=== PATIENT | male | born 1965 | race Caucasian/White ===

== ENCOUNTER 2017-08-13 22:52 | Observation (INO) | payer OTHER ==
[~2017-08-13] VITALS: Ht 182.9 cm; Wt 136.3 kg
[2017-08-13] MEDS ORDERED: SODIUM CHLORIDE 0.9% 1000ML 1,000 ML IV STA (23:14)
[2017-08-13] MEDS ORDERED: ONDANSETRON INJ 2 MG/ML 2 ML VIAL IV STA (23:14)
--- NOTE | 2017-08-13 23:21 | EMERGENCY ROOM VISIT NOTE ---
History Report prepared by Breanna: Wan Gotti Under the Supervision of: Dr. Manuel Castro D.O. First contact with patient: 23:11 Chief Complaint: ABDOMINAL PAIN Stated Complaint: STOMACH CRAMPING Nursing Triage Summary: sudden onset of abdominal pain for the last three hours. patient with a history of bowel obstructions and sugeries in past. History of Present Illness The patient is a 52 year old male who presents to the Emergency Room with complaints of constant cramping midline lower abdominal pain that began 3 hours ago. The patient was working at the [employer] when he began to feel diaphoretic. He then began to feel this abdominal pain. He has a past medical history of a bowel obstruction and a hernia repair. He states his current symptoms feel like his symptoms of his past bowel obstruction. He denies any vomiting, back pain, hematochezia, or melena. He was experiencing some diarrhea. He tried to take Pepto Bismol, but it did not help his symptoms. He has never had diverticulitis. He denies any current medications or medical problems. He denies any chest pain or shortness of breath. Source of History: patient Onset: 3 hours ago Position: abdomen Symptom Intensity: moderate Quality: cramping Timing: constant Associated Symptoms: + diarrhea, No chest pain, No SOB, No vomiting, No back pain, No melena, No hematochezia Review of Systems See HPI for pertinent positives & negatives. A total of 10 systems reviewed and were otherwise negative. Past Medical & Surgical Medical Problems: (1) No Known Active Medical Problems Family History Omitted secondary to the patient's age. Social History Smoking Status: Never Smoker Smokeless Tobacco Use: No Alcohol Use: none Drug Use: none Occupation Status: employed Current/Historical Medications Scheduled Fish Oil ([place]-3), 2 CAP PO DAILY Multivitamin (Multivitamin), 1 TAB PO DAILY Allergies Coded Allergies: Penicillins (Verified Allergy, Unknown, swelling tongue, 08/13/17) Physical Exam Vital Signs Date Time Temp Pulse Resp B/P (MAP) Pulse Ox O2 Delivery O2 Flow Rate FiO2 08/14/17 00:25 65 20 161/92 96 Room Air 08/13/17 23:16 78 08/13/17 22:59 36.6 80 20 182/95 97 Room Air Physical Exam GENERAL: Patient is awake, alert, and in no acute distress. Patient is anxious and uncomfortable appearing. EYES: The conjunctivae are clear. The pupils are round and reactive. EARS, NOSE, MOUTH AND THROAT: The nose is without any evidence of any deformity. Mucous membranes are moist tongue is midline NECK: The neck is nontender and supple. RESPIRATORY: Normal respiratory effort is noted there is no evidence of wheezing rhonchi or rales CARDIOVASCULAR: Regular rate and rhythm noted there no murmurs rubs or gallops normal S1 normal S2 GASTROINTESTINAL: The abdomen is soft but moderately distended. Bowel sounds are present in all quadrants. Abdomen is diffusely tender. Guarding noted to the suprapubic region. MUSCULOSKELETAL/EXTREMITIES: There is no evidence of gross deformity full range of motion is noted in the hips and shoulders SKIN: There is no obvious evidence of any rash. There are no petechiae, pallor or cyanosis noted. NEUROLOGIC: Patient is awake alert and oriented x3 Medical Decision & Procedures ER Provider Diagnostic Interpretation: CT the abdomen and pelvis was obtained in the emergency department. The report was reviewed. Preliminary Findings Only See Final Report For Complete Findings CT ABDOMEN & PELVIS Without Contrast: Normal appendix. Tubular structure at left aspect of pelvis. There is associated calcification and it is contiguous with the left internal iliac vein, compatible with a varix. It demonstrates a focal narrowing and peripheral/inferior to the narrowing is dilated up to 3.2 cm where there mild adjacent fat stranding. Possibility of a thrombosed varix should be considered. Small bowel anastomosis right abdomen. No evidence of bowel obstruction. Colonic diverticulosis without evidence of acute diverticulitis. No free air or free fluid. Fat infiltration of pancreas. Unopacified solid organs otherwise unremarkable. Degenerative changes of lower thoracic and lumbar spine. Small fat-containing umbilical hernia. Radiologist: Vitaly Jurado MD Study ready at 23:47 and initial results transmitted at 00:42 Chest X-Ray 1 View reviewed by me: Poor inspiratory effort noted. No definite infiltrate. No free air. No acute disease. Laboratory Results 08/13/17 23:10 Red Blood Count 4.58, Mean Corpuscular Volume 87.6, Mean Corpuscular Hemoglobin 32.1, Mean Corpuscular Hemoglobin Concent 36.7, Mean Platelet Volume 9.2, Neutrophils (%) (Auto) 86.7, Lymphocytes (%) (Auto) 7.4, Monocytes (%) (Auto) 5.2, Eosinophils (%) (Auto) 0.3, Basophils (%) (Auto) 0.1, Neutrophils # (Auto) 9.72, Lymphocytes # (Auto) 0.83, Monocytes # (Auto) 0.58, Eosinophils # (Auto) 0.03, Basophils # (Auto) 0.01 08/13/17 23:10 Test 08/13/17 23:10 08/13/17 23:16 08/13/17 23:25 White Blood Count 11.20 K/uL (4.8-10.8) Red Blood Count 4.58 M/uL (4.7-6.1) Hemoglobin 14.7 g/dL (14.0-18.0) Hematocrit 40.1 % (42-52) Mean Corpuscular Volume 87.6 fL (80-100) Mean Corpuscular Hemoglobin 32.1 pg (25-34) Mean Corpuscular Hemoglobin Concent 36.7 g/dl (32-36) Platelet Count 223 K/uL (130-400) Mean Platelet Volume 9.2 fL (7.4-10.4) Neutrophils (%) (Auto) 86.7 % Lymphocytes (%) (Auto) 7.4 % Monocytes (%) (Auto) 5.2 % Eosinophils (%) (Auto) 0.3 % Basophils (%) (Auto) 0.1 % Neutrophils # (Auto) 9.72 K/uL (1.4-6.5) Lymphocytes # (Auto) 0.83 K/uL (1.2-3.4) Monocytes # (Auto) 0.58 K/uL (0.11-0.59) Eosinophils # (Auto) 0.03 K/uL (0-0.5) Basophils # (Auto) 0.01 K/uL (0-0.2) RDW Standard Deviation 39.9 fL (36.4-46.3) RDW Coefficient of Variation 12.5 % (11.5-14.5) Immature Granulocyte % (Auto) 0.3 % Immature Granulocyte # (Auto) 0.03 K/uL (0.00-0.02) Prothrombin Time 10.3 SECONDS (9.0-12.0) Prothromb Time International Ratio 1.0 (0.9-1.1) Activated Partial Thromboplast Time 26.4 SECONDS (21.0-31.0) Partial Thromboplastin Ratio 1.0 Anion Gap 9.0 mmol/L (3-11) Est Creatinine Clear Calc Drug Dose 93.8 ml/min Estimated GFR () 71.7 Estimated GFR (Non- 61.9 BUN/Creatinine Ratio 12.7 (10-20) Calcium Level 8.7 mg/dl (8.5-10.1) Magnesium Level 2.0 mg/dl (1.8-2.4) Total Bilirubin 0.4 mg/dl (0.2-1) Direct Bilirubin 0.1 mg/dl (0-0.2) Aspartate Amino Transf (AST/SGOT) 19 U/L (15-37) Alanine Aminotransferase (ALT/SGPT) 19 U/L (12-78) Alkaline Phosphatase 69 U/L (45-117) Total Protein 7.7 gm/dl (6.4-8.2) Albumin 3.8 gm/dl (3.4-5.0) Lipase 108 U/L (73-393) Thyroid Stimulating Hormone (TSH) 2.130 uIu/ml (0.300-4.500) Bedside Lactic Acid Venous 0.93 mmol/L (0.90-1.70) Urine Color YELLOW Urine Appearance CLEAR (CLEAR) Urine pH 5.5 (4.5-7.5) Urine Specific [place] 1.029 (1.000-1.030) Urine Protein NEG (NEG) Urine Glucose (UA) NEG (NEG) Urine Ketones TRACE (NEG) Urine Occult Blood TRACE (NEG) Urine Nitrite NEG (NEG) Urine Bilirubin NEG (NEG) Urine Urobilinogen NEG (NEG) Urine Leukocyte Esterase TRACE (NEG) Urine WBC (Auto) 10-30 /hpf (0-5) Urine RBC (Auto) 0-4 /hpf (0-4) Urine Hyaline Casts (Auto) 1-5 /lpf (0-5) Urine Epithelial Cells (Auto) 20-30 /lpf (0-5) Urine Bacteria (Auto) NEG (NEG) Urine Opiates Screen NEG (NEG) Urine Methadone, Qualitative NEG (NEG) Urine Barbiturates NEG (NEG) Urine Phencyclidine (PCP) Level NEG (NEG) Ur Amphetamine/Methamphetamine NEG (NEG) MDMA (Ecstasy) Screen NEG (NEG) Urine Benzodiazepines Screen NEG (NEG) Urine Cocaine Metabolite NEG (NEG) Urine Marijuana (THC) NEG (NEG) Laboratory results per my review. Medications Administered Medications (Trade) Dose Ordered Sig/Darnell Route Start Time Stop Time Status Last Admin Dose Admin Sodium Chloride 1,000 ml @ 999 mls/hr Q1H1M STAT IV 08/13/17 23:14 08/14/17 00:14 DC 08/13/17 23:14 999 MLS/HR Ondansetron HCl (Zofran Inj) 4 mg NOW STAT IV 08/13/17 23:14 08/13/17 23:16 DC 08/13/17 23:22 4 MG Morphine Sulfate (MoRPHine SULFATE INJ) 4 mg Q15M PRN IV 08/13/17 23:15 08/14/17 03:03 DC 08/14/17 00:25 4 MG Ceftriaxone Sodium (Rocephin Inj) 1 gm NOW STAT IV 08/14/17 00:55 08/14/17 00:56 DC 08/14/17 01:04 1 GM ED Course 10610: The patient was evaluated in room B5. A complete history and physical examination were performed. 2314: Ordered Zofran Inj 4 mg IV, NSS 1,000 ml @ 999 mls/hr IV 2315: Ordered Morphine Sulfate 4 mg IV 0055: Ordered Rocephin Inj 1 gm IV 0104: Upon reevaluation, the patient is resting. I discussed results and treatment plan with him. He verbalizes agreement and understanding. I spoke with Dr. Armstrong of the [facility]. The patient will be evaluated for further management and care. Medical Decision Differential diagnosis: Etiologies such as appendicitis, diverticulitis, PUD, biliary pathology, UTI, pancreatitis, obstruction, mesenteric ischemia, aortic pathology, infections, inflammatory bowel disease, renal colic, as well as others were entertained. Nursing notes reviewed. The patient is a 52-year-old male who presented to emergency department for abdominal pain. The patient had significant abdominal pain on physical exam. I discussed the patient's laboratory radiographic studies with him. No definite source for his pain could be found. There were some incidental findings noted on the CT but I am unsure if these are related to his acute presentation today. The patient was treated with IV fluids IV pain medicine and IV antiemetics. Because of ongoing pain I discussed his case with the on-call [facility] hospitalist. They've agreed to evaluate the patient in the emergency department for further management and disposition. Medication Reconcilliation Current Medication List: was personally reviewed by me Blood Pressure Screening Patient's blood pressure: Elevated blood pressure Blood pressure disposition: Elevated BP felt to be situational Consults Time Called: 99 Consulting Physician: Dr. Nathaniel Peng Hospitalist Returned Call: [phone] I discussed the patient's case with him. The patient will be evaluated for further management. Impression Primary Impression: Intractable lower abdominal pain Additional Impression: UTI (urinary tract infection) Scribe Attestation The scribe's documentation has been prepared under my direction and personally reviewed by me in its entirety. I confirm that the note above accurately reflects all work, treatment, procedures, and medical decision making performed by me. Departure Information Dispostion Being Evaluated By Hospitalist Referrals No Doctor, Assigned (PCP) Patient Instructions My [facility] Problem Qualifiers Additional Impression: UTI (urinary tract infection) Urinary tract infection type: site unspecified Hematuria presence: without hematuria Qualified Codes: N39.0 - Urinary tract infection, site not specified
[2017-08-13] MEDS: MoRPHine SULFATE 4 MG/ML 1 ML CARP\\VIAL IV PRN (23:22)
[2017-08-13 23:23] LABS: BASO % 0.1 %; BASO ABS # 0.01 K/uL (0-0.2); COMPLETE YES; EOS % 0.3 %; HEMATOCRIT 40.1 % (42-52); IG% 0.3 %; LYMPH % 7.4 %; LYMPH ABS # 0.83 K/uL (1.2-3.4); MEAN CELL VOLUME 87.6 fL (80-100); MEAN CORPUSCULAR HEMOGLOBIN 32.1 pg (25-34); MEAN CORPUSCULAR HGB CONC 36.7 g/dl (32-36); MEAN PLATELET VOLUME 9.2 fL (7.4-10.4); MONO % 5.2 %; NEUT % 86.7 %; PLATELET COUNT 223 K/uL (130-400); RED BLOOD COUNT 4.58 M/uL (4.7-6.1)
[2017-08-13 23:35] LABS: PROTHROMBIN TIME (PATIENT) 10.3 SECONDS (9.0-12.0)
[2017-08-13 23:40] LABS: BUN/CREATININE RATIO 12.7 (10-20); CALCIUM 8.7 mg/dl (8.5-10.1); CREATININE 1.3 mg/dl (0.60-1.40); POTASSIUM 3.9 mmol/L (3.5-5.1)
[2017-08-13 23:51] LABS: URINE APPEARANCE CLEAR (CLEAR); URINE BILIRUBIN NEG (NEG); URINE COLOR YELLOW; URINE EPITHELIAL CELL AUTO 20-30 /lpf (0-5); URINE NITRITE NEG (NEG); URINE PH 5.5 (4.5-7.5); URINE SPECIFIC GRAVITY 1.029 (1.000-1.030); UROBILINOGEN NEG (NEG)
[2017-08-13 23:53] LABS: MANUAL MICROSCOPIC REQUIRED? NO; REVIEW REQ? NO
[2017-08-14] MEDS: MoRPHine SULFATE 4 MG/ML 1 ML CARP\\VIAL IV PRN (00:25)
[2017-08-14] MEDS ORDERED: CEFTRIAXONE SOD INJ 1 GM ADDVIAL IV STA (00:55)
[2017-08-14] MEDS ORDERED: MULT-506 PO (01:18)
[2017-08-14] MEDS ORDERED: OMEG10007 PO (01:19)
[2017-08-14 01:30] LABS: THYROID STIMULATING HORMONE 2.13 uIu/ml (0.300-4.500)
[2017-08-14] MEDS ORDERED: LORAZEPAM 2 MG/ML 1 ML VIAL IV PRN (01:45)
[2017-08-14] MEDS ORDERED: ONDANSETRON INJ 2 MG/ML 2 ML VIAL IV PRN (01:45)
[2017-08-14] MEDS ORDERED: HYDROmorphone INJ 0.5 MG/0.5 ML SYR IV PRN (01:45)
[2017-08-14] MEDS ORDERED: TRAMADOL HCL 50 MG TAB PO PRN (01:45)
[2017-08-14] MEDS ORDERED: KETOROLAC TROMETHAMINE 30 MG/ML VIAL IV PRN (02:00)
[2017-08-14 02:35] VITALS: BP 161/78; PULSE 81; TEMP 37; O2SAT 95; Ht 182.9 cm; Wt 136.3 kg
--- NOTE | 2017-08-14 03:08 | HISTORY & PHYSICAL EXAMINATION ---
DATE OF ADMISSION: 08/14/2017 PRIMARY CARE DOCTOR: YURI Stratton from [place], [place]. CHIEF COMPLAINT: Abdominal pain. HISTORY OF PRESENT ILLNESS: History obtained from patient and ER physician. Medical history is significant for bowel obstruction. Patient in town for work today. This morning the patient had hypogastric pain, achy, crampy, going to his upper belly, loose bowel movements, minimal nausea, no vomiting, possible sick contacts, no recent antibiotics. Stools kind of dark. Patient denies dysuria. As per the patient abdominal pain somewhat similar to his bowel obstruction, pain in the past. Patient felt lightheaded, was not comfortable driving back home to [facility]. Intractable pain in the Emergency Room. Patient given ceftriaxone in the ER for possible UTI. MEDICAL HISTORY: As above. SURGERIES: Bowel surgery 2009 in [place], shoulder and wrist surgery. HOME MEDICATIONS: Multivitamins, Meloxicam. ALLERGIES: ALLERGIC TO PENICILLIN FAMILY HISTORY: Diabetes, heart disease. PERSONAL AND SOCIAL HISTORY: Nonsmoker, no chronic intake of alcohol, [employer] employee. REVIEW OF SYSTEMS: As per HPI, all other ROS negative. PHYSICAL EXAMINATION: VITAL SIGNS: Blood pressure was noted to be 182/95, later 167/104, pulse rate 90 RR 18 T 37 O2 sats 96 on room air. GENERAL: Noted to be obese, slightly uncomfortable, anxious, no respiratory distress. SKIN: Normal color, dry. HEENT: [place] palpebral conjunctivae, dry mucosa. NECK: Short neck midline trachea. No tenderness. CHEST: Clear to auscultation. No anterior chest wall tenderness. CV: Regular rate and rhythm. Palpable LE pulses. ABDOMEN: Some distention, midline abdominal tenderness. RECTAL: intact sphincter, brown stool, heme negative. EXTREMITIES: Minimal LE edema, no tenderness. Wrist splint on the right. NEUROLOGIC: No gross focality. LABS: Hemoglobin was noted to be 14.7, hematocrit 40, white cells 11.2, platelets 223. Sodium 140, potassium 3.9, chloride 109, CO2 22, BUN 17, creatinine 0.8, glucose 131. LFTs, lipase normal. UA, trace ketones, trace occult blood, trace WBC est positive, epithelial cells CAT scan initial read showed normal appendix, tubular structure, left pelvis - Possible thrombosed internal iliac vein varix; no bowel obstruction; colonic diverticulosis, fatty infiltration of the pancreas. ASSESSMENT: 1. Abdominal pain 2 to acute gastroenteritis rule out Clostridium difficile. 2. Asymptomatic pyuria, contaminated specimen Patient not septic. 3. situational hypertension 4. hyperglycemia, rule out DM. PLAN: Observation F supportive management for viral gastroenteritis, stool C. diff IV fluids. Hold off on antibiotics for now Follow official CT abdomen and pelvis results. Analgesia, Monitor BP, check EKG Check hemoglobin A1c. DVT prophylaxis, Lovenox subQ. Full code. MTDD
[2017-08-14] MEDS ORDERED: LACTATED RINGER'S 1000ML 1,000 ML IV ONE (03:15)
[2017-08-14] MEDS ORDERED: IV FLUIDS COMPLETED PRN (04:00)
[2017-08-14] MEDS ORDERED: INFLUENZA VIRUS QUAD VACCINE 0.5 ML SYR IM. ONE (04:00)
[2017-08-14] MEDS ORDERED: INFLUENZA ADMINISTRATION CHARGE ONE (04:00)
[2017-08-14 04:08] LABS: BENZODIAZEPINE, URINE NEG (NEG); COCAINE,URINE NEG (NEG); PHENCYCLIDINE, URINE NEG (NEG)
--- NOTE | 2017-08-14 06:58 | DIAGNOSTIC IMAGING REPORT ---
CHEST ONE VIEW PORTABLE HISTORY: 52 years-old Male ABDOMINAL PAIN/GI acute generalized abdominal pain COMPARISON: None available TECHNIQUE: Portable upright AP view of the chest FINDINGS: Cardiomediastinal and hilar silhouettes are within normal limits. No pneumothorax or pleural effusion. Hazy subsegmental bibasilar opacities suggest atelectasis without lobar airspace consolidation or overt pulmonary edema. The bones are grossly intact. IMPRESSION: No acute cardiopulmonary process. The above report was generated using voice recognition software. It may contain grammatical, syntax or spelling errors. Electronically signed by: Kieran White M.D. 08/14/2017 6:57 AM Dictated Date/Time: 08/14/2017 6:56 AM
--- NOTE | 2017-08-14 07:18 | DIAGNOSTIC IMAGING REPORT ---
ABD/PELVIS NO IV OR ORAL CONT HISTORY: 52 years-old Male lower abd pain acute generalized abdominal pain. Initial exam. History of kidney stones. COMPARISON: None available. TECHNIQUE: Multiple axial CT images of the abdomen and pelvis were obtained without contrast. A dose lowering technique was used consistent with the principals of CULLEN. FINDINGS: Inferior cardiac chambers are unremarkable. Lung bases are generally clear. No pneumoperitoneum. The liver, spleen and adrenal glands are within normal limits. Minimal layering cholelithiasis within the gallbladder neck. No CT evidence of acute cholecystitis. Moderate to severe diffuse pancreatic atrophy. Kidneys, ureters and urinary bladder are unremarkable. Coarse calcifications are seen within the central prostate. The abdominal aorta is normal in both course and caliber. No bulky adenopathy. There is a tubular peripherally calcified structure of the left lower pelvis which is contiguous with the left internal iliac vein which measures up to 4.7 x 3.2 x 4.3 cm in AP, transverse and craniocaudal dimension. Evaluation of this structure is limited without the use of contrast. There is minimal surrounding inflammatory stranding. There is no bowel obstruction. Small bowel anastomosis of the right lower abdomen is seen. There is an ovoid centrally fatty attenuating structure with minimal peripheral inflammation, 2.2 x 2.1 cm on image 396 of series 3 suggesting acute or subacute epiploic appendagitis. There is sigmoid colonic diverticulosis without diverticulitis. No evidence of acute appendicitis. Soft tissues are unremarkable. Bones are intact. Mild multilevel endplate spurring. IMPRESSION: 1. Tubular structure with minimal peripheral calcification involving the left lower pelvis measuring up to 4.7 cm is contiguous with the left internal iliac vein suggesting a varix. Mild peripheral inflammatory stranding is also noted which is suspicious for possible thrombosis. 2. Ovoid centrally fatty attenuating structure abutting the sigmoid colon, 2.2 cm suggests epiploic appendagitis, acute to subacute. 3. Colonic diverticulosis without diverticulitis. 4. Mild cholelithiasis without CT evidence of acute cholecystitis. The above report was generated using voice recognition software. It may contain grammatical, syntax or spelling errors. Electronically signed by: Kieran White M.D. 08/14/2017 7:16 AM Dictated Date/Time: 08/14/2017 7:06 AM
[2017-08-14 07:27] VITALS: BP 154/84; PULSE 79; TEMP 36.9; O2SAT 94
[2017-08-14] MEDS: CIPROFLOXACIN / D5W 400 MG in PREMIXED IN D5W 200 ML IV SCH ×2 (08:23→19:51)
[2017-08-14] MEDS: ENOXAPARIN 40 MG/0.4 ML SYR SQ SCH (08:26)
[2017-08-14] MEDS: MULTIVITAMIN TAB PO SCH (08:26)
--- NOTE | 2017-08-14 08:33 | Progress Note ---
Internal Med Progress Note Date of Service: Aug 14, 2017. Provider Documentation: SUBJECTIVE: Seen and examined at bedside. Minimal abdominal pain today Diarrhea/Nausea resolved Denies CP/SOB No other complaints OBJECTIVE: Vital Signs-as noted below Physical Exam: Vitals signs as noted above General Appearance:Obese, no apparent distress Head: normocephalic, Atraumatic Eyes: normal inspection, EOMI, PERRL Neck: supple, Trachea midline Respiratory/Chest: Normal breath sounds, CTA Cardiovascular: S1, S2, No murmur Abdomen/GI:Soft, mild tender, Bowel sounds present Extremities/Musculoskelatal:normal inspection, no edema Neurologic/Psych:AAOX3, grossly no focal neurological deficits Skin: normal color, warm Lab data as noted below. 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 H/O Umbilical hernia repair R/O Clostridium difficile Empirically Start IV Abx IV fluids consult Surgery Monitor Asymptomatic pyuria: Likely contaminated specimen Follow urine culture Hypertension: Likely situational Monitor Hyperglycemia: No known DM A1C pending Obesity: BMI:40.7 DVT Px: Lovenox SQ Code Status: Full code Disposition: Plan to discharge home when stable Vital Signs: Date Time Temp Pulse Resp B/P (MAP) Pulse Ox O2 Delivery O2 Flow Rate FiO2 08/14/17 07:27 36.9 79 16 154/84 (107) 94 Room Air 08/14/17 02:35 37.0 81 18 161/78 95 Room Air 08/14/17 02:35 37.0 81 18 161/78 (105) 95 Room Air 08/14/17 01:50 78 16 149/92 97 Room Air 08/14/17 01:41 66 20 127/104 97 Room Air 08/14/17 00:25 65 20 161/92 96 Room Air 08/13/17 23:16 78 08/13/17 22:59 36.6 80 20 182/95 97 Room Air Lab Results: Results Past 24 Hours Test 08/13/17 23:10 08/13/17 23:16 08/13/17 23:25 Range/Units White Blood Count 11.20 4.8-10.8 K/uL Red Blood Count 4.58 4.7-6.1 M/uL Hemoglobin 14.7 14.0-18.0 g/dL Hematocrit 40.1 42-52 % Mean Corpuscular Volume 87.6 80-100 fL Mean Corpuscular Hemoglobin 32.1 25-34 pg Mean Corpuscular Hemoglobin Concent 36.7 32-36 g/dl Platelet Count 223 130-400 K/uL Mean Platelet Volume 9.2 7.4-10.4 fL Neutrophils (%) (Auto) 86.7 % Lymphocytes (%) (Auto) 7.4 % Monocytes (%) (Auto) 5.2 % Eosinophils (%) (Auto) 0.3 % Basophils (%) (Auto) 0.1 % Neutrophils # (Auto) 9.72 1.4-6.5 K/uL Lymphocytes # (Auto) 0.83 1.2-3.4 K/uL Monocytes # (Auto) 0.58 0.11-0.59 K/uL Eosinophils # (Auto) 0.03 0-0.5 K/uL Basophils # (Auto) 0.01 0-0.2 K/uL RDW Standard Deviation 39.9 36.4-46.3 fL RDW Coefficient of Variation 12.5 11.5-14.5 % Immature Granulocyte % (Auto) 0.3 % Immature Granulocyte # (Auto) 0.03 0.00-0.02 K/uL Prothrombin Time 10.3 9.0-12.0 SECONDS Prothromb Time International Ratio 1.0 0.9-1.1 Activated Partial Thromboplast Time 26.4 21.0-31.0 SECONDS Partial Thromboplastin Ratio 1.0 Sodium Level 140 136-145 mmol/L Potassium Level 3.9 3.5-5.1 mmol/L Chloride Level 109 98-107 mmol/L Carbon Dioxide Level 22 21-32 mmol/L Anion Gap 9.0 3-11 mmol/L Blood Urea Nitrogen 17 7-18 mg/dl Creatinine 1.30 0.60-1.40 mg/dl Est Creatinine Clear Calc Drug Dose 93.8 ml/min Estimated GFR () 71.7 Estimated GFR (Non- 61.9 BUN/Creatinine Ratio 12.7 10-20 Random Glucose 131 70-99 mg/dl Calcium Level 8.7 8.5-10.1 mg/dl Magnesium Level 2.0 1.8-2.4 mg/dl Total Bilirubin 0.4 0.2-1 mg/dl Direct Bilirubin 0.1 0-0.2 mg/dl Aspartate Amino Transf (AST/SGOT) 19 15-37 U/L Alanine Aminotransferase (ALT/SGPT) 19 12-78 U/L Alkaline Phosphatase 69 45-117 U/L Total Protein 7.7 6.4-8.2 gm/dl Albumin 3.8 3.4-5.0 gm/dl Lipase 108 73-393 U/L Thyroid Stimulating Hormone (TSH) 2.130 0.300-4.500 uIu/ml Bedside Lactic Acid Venous 0.93 0.90-1.70 mmol/L Urine Color YELLOW Urine Appearance CLEAR CLEAR Urine pH 5.5 4.5-7.5 Urine Specific [place] 1.029 1.000-1.030 Urine Protein NEG NEG Urine Glucose (UA) NEG NEG Urine Ketones TRACE NEG Urine Occult Blood TRACE NEG Urine Nitrite NEG NEG Urine Bilirubin NEG NEG Urine Urobilinogen NEG NEG Urine Leukocyte Esterase TRACE NEG Urine WBC (Auto) 10-30 0-5 /hpf Urine RBC (Auto) 0-4 0-4 /hpf Urine Hyaline Casts (Auto) 1-5 0-5 /lpf Urine Epithelial Cells (Auto) 20-30 0-5 /lpf Urine Bacteria (Auto) NEG NEG Urine Opiates Screen NEG NEG Urine Methadone, Qualitative NEG NEG Urine Barbiturates NEG NEG Urine Phencyclidine (PCP) Level NEG NEG Ur Amphetamine/Methamphetamine NEG NEG MDMA (Ecstasy) Screen NEG NEG Urine Benzodiazepines Screen NEG NEG Urine Cocaine Metabolite NEG NEG Urine Marijuana (THC) NEG NEG Microbiology Results 08/13/17 Urine Culture, Received Pending
[2017-08-14] MEDS: NSS + 20MEQ KCL 1000ML 1,000 ML IV SCH ×2 (09:21→21:48)
--- NOTE | 2017-08-14 11:12 | Surgery Consultation ---
Consultation Date of Consultation: Aug 14, 2017. Attending Physician: Jv Spencer MD History of Present Illness pt was at the [employer] game and began having LLQ pain...worsened so he presented to ER. no prior hx of same. feeling better now. Past Medical/Surgical History Medical Problems: (1) Intractable lower abdominal pain Status: Acute (2) UTI (urinary tract infection) Status: Acute Social History Smoking Status: Never Smoker Smokeless Tobacco Use: No Drug Use: none Occupation Status: employed Allergies Coded Allergies: Penicillins (Verified Allergy, Unknown, swelling tongue, 08/13/17) Home Medications Scheduled Fish Oil ([place]-3), 2 CAP PO DAILY Multivitamin (Multivitamin), 1 TAB PO DAILY Current Inpatient Medications Current Inpatient Medications Medications (Trade) Dose Ordered Sig/Darnell Route Start Time Stop Time Status Last Admin Dose Admin Enoxaparin Sodium (Lovenox Inj) 40 mg Q24H SQ 08/14/17 09:00 09/13/17 08:59 08/14/17 08:26 40 MG Acetaminophen (Tylenol Tab) 650 mg Q4H PRN PO 08/14/17 01:45 09/13/17 01:44 Ondansetron HCl (Zofran Inj) 4 mg Q6H PRN IV 08/14/17 01:45 09/13/17 01:44 Tramadol HCl (Ultram Tab) not relieved by tylenol @ Q6H PRN PO 08/14/17 01:45 09/13/17 01:44 08/14/17 02:48 50 MG Hydromorphone HCl (Dilaudid Inj) 0.5 mg Q4H PRN IV 08/14/17 01:45 08/28/17 01:44 Lorazepam (Ativan Inj) 0.5 mg Q4H PRN IV 08/14/17 01:45 09/13/17 01:44 Multivitamins (Multivitamin Tab) 1 tab DAILY PO 08/14/17 09:00 09/13/17 08:59 08/14/17 08:26 1 TAB Ketorolac Tromethamine (Toradol Inj) 30 mg Q6H PRN IV 08/14/17 02:00 08/19/17 01:59 Miscellaneous (Iv Fluids Completed) 1 ea PRN PRN N/A 08/14/17 04:00 08/14/18 03:59 Ciprofloxacin/ Dextrose 400 mg/ Prmx 200 ml @ 100 mls/hr Q12H IV 08/14/17 08:00 08/24/17 07:59 08/14/17 08:23 100 MLS/HR Metronidazole 500 mg/Prmx 100 ml @ 100 mls/hr Q8H IV 08/14/17 10:00 08/24/17 09:59 Potassium Chloride/Sodium Chloride 1,000 ml @ 75 mls/hr [id number] IV 08/14/17 08:30 09/13/17 08:29 08/14/17 09:21 75 MLS/HR Review of Systems Abdomen: + pain Physical Exam Date Time Temp Pulse Resp B/P (MAP) Pulse Ox O2 Delivery O2 Flow Rate FiO2 08/14/17 08:00 Room Air 08/14/17 07:27 36.9 79 16 154/84 (107) 94 Room Air 08/14/17 02:35 37.0 81 18 161/78 95 Room Air 08/14/17 02:35 37.0 81 18 161/78 (105) 95 Room Air 08/14/17 01:50 78 16 149/92 97 Room Air 08/14/17 01:41 66 20 127/104 97 Room Air 08/14/17 00:25 65 20 161/92 96 Room Air 08/13/17 23:16 78 08/13/17 22:59 36.6 80 20 182/95 97 Room Air General Appearance: no apparent distress Head: normocephalic, atraumatic Eyes: PERRL, EOMI ENT: hearing grossly normal Respiratory/Chest: no respiratory distress, no accessory muscle use Abdomen/GI: non tender, soft Neurologic/Psych: alert, normal mood/affect, oriented x 3 Skin: warm/dry, no rash Laboratory Results Last 24 Hours Test 08/13/17 23:10 08/13/17 23:16 08/13/17 23:25 White Blood Count 11.20 K/uL Red Blood Count 4.58 M/uL Hemoglobin 14.7 g/dL Hematocrit 40.1 % Mean Corpuscular Volume 87.6 fL Mean Corpuscular Hemoglobin 32.1 pg Mean Corpuscular Hemoglobin Concent 36.7 g/dl Platelet Count 223 K/uL Mean Platelet Volume 9.2 fL Neutrophils (%) (Auto) 86.7 % Lymphocytes (%) (Auto) 7.4 % Monocytes (%) (Auto) 5.2 % Eosinophils (%) (Auto) 0.3 % Basophils (%) (Auto) 0.1 % Neutrophils # (Auto) 9.72 K/uL Lymphocytes # (Auto) 0.83 K/uL Monocytes # (Auto) 0.58 K/uL Eosinophils # (Auto) 0.03 K/uL Basophils # (Auto) 0.01 K/uL RDW Standard Deviation 39.9 fL RDW Coefficient of Variation 12.5 % Immature Granulocyte % (Auto) 0.3 % Immature Granulocyte # (Auto) 0.03 K/uL Prothrombin Time 10.3 SECONDS Prothromb Time International Ratio 1.0 Activated Partial Thromboplast Time 26.4 SECONDS Partial Thromboplastin Ratio 1.0 Sodium Level 140 mmol/L Potassium Level 3.9 mmol/L Chloride Level 109 mmol/L Carbon Dioxide Level 22 mmol/L Anion Gap 9.0 mmol/L Blood Urea Nitrogen 17 mg/dl Creatinine 1.30 mg/dl Est Creatinine Clear Calc Drug Dose 93.8 ml/min Estimated GFR () 71.7 Estimated GFR (Non- 61.9 BUN/Creatinine Ratio 12.7 Random Glucose 131 mg/dl Calcium Level 8.7 mg/dl Magnesium Level 2.0 mg/dl Total Bilirubin 0.4 mg/dl Direct Bilirubin 0.1 mg/dl Aspartate Amino Transf (AST/SGOT) 19 U/L Alanine Aminotransferase (ALT/SGPT) 19 U/L Alkaline Phosphatase 69 U/L Total Protein 7.7 gm/dl Albumin 3.8 gm/dl Lipase 108 U/L Thyroid Stimulating Hormone (TSH) 2.130 uIu/ml Bedside Lactic Acid Venous 0.93 mmol/L Urine Color YELLOW Urine Appearance CLEAR Urine pH 5.5 Urine Specific [place] 1.029 Urine Protein NEG Urine Glucose (UA) NEG Urine Ketones TRACE Urine Occult Blood TRACE Urine Nitrite NEG Urine Bilirubin NEG Urine Urobilinogen NEG Urine Leukocyte Esterase TRACE Urine WBC (Auto) 10-30 /hpf Urine RBC (Auto) 0-4 /hpf Urine Hyaline Casts (Auto) 1-5 /lpf Urine Epithelial Cells (Auto) 20-30 /lpf Urine Bacteria (Auto) NEG Urine Opiates Screen NEG Urine Methadone, Qualitative NEG Urine Barbiturates NEG Urine Phencyclidine (PCP) Level NEG Ur Amphetamine/Methamphetamine NEG MDMA (Ecstasy) Screen NEG Urine Benzodiazepines Screen NEG Urine Cocaine Metabolite NEG Urine Marijuana (THC) NEG Assessment & Plan pt clinically was c/w epiploic appendagitis symptoms resolved now/labs improved unclear of questionable varice/importance of that..vascular surgery consulted from my standpoint, pt can get regular diet with d/c planning. rec antibiotics for a week assuming he has/had epiploic appendagitis.
[2017-08-14] MEDS: METRONIDAZOLE / NSS 500 MG in PREMIXED NSS 100 ML IV SCH ×2 (11:17→18:08)
[2017-08-14 15:00] VITALS: BP 166/92; PULSE 63; TEMP 36.9; O2SAT 95
[2017-08-14] MEDS: ACETAMINOPHEN 325 MG TAB PO PRN (17:24)
[2017-08-14] MEDS ORDERED: LORAZEPAM INJ 0.5 MG in SYRINGE 0.75 ML IV PRN (21:30)
[2017-08-14 23:21] VITALS: BP 151/85; PULSE 79; TEMP 36.9; O2SAT 92
[2017-08-15] MEDS: METRONIDAZOLE / NSS 500 MG in PREMIXED NSS 100 ML IV SCH (01:53)
[2017-08-15] MEDS: NSS + 20MEQ KCL 1000ML 1,000 ML IV SCH (01:58)
[2017-08-15] MEDS: ACETAMINOPHEN 325 MG TAB PO PRN (01:58)
[2017-08-15 06:05] LABS: BASO % 0.1 %; BASO ABS # 0.01 K/uL (0-0.2); COMPLETE YES; EOS % 3.1 %; HEMATOCRIT 41.1 % (42-52); IG% 0.1 %; LYMPH % 20.6 %; LYMPH ABS # 1.41 K/uL (1.2-3.4); MEAN CORPUSCULAR HEMOGLOBIN 29.6 pg (25-34); MEAN CORPUSCULAR HGB CONC 33.6 g/dl (32-36); MEAN PLATELET VOLUME 9.1 fL (7.4-10.4); MONO % 10.7 %; NEUT % 65.4 %; PLATELET COUNT 211 K/uL (130-400); RED BLOOD COUNT 4.67 M/uL (4.7-6.1); WHITE BLOOD COUNT 6.83 K/uL (4.8-10.8)
[2017-08-15 06:43] LABS: BUN/CREATININE RATIO 11.7 (10-20); CALCIUM 8.1 mg/dl (8.5-10.1); CREATININE 0.72 mg/dl (0.60-1.40); MAGNESIUM 1.9 mg/dl (1.8-2.4)
[2017-08-15 07:14] VITALS: BP 135/87; PULSE 66; TEMP 37; O2SAT 96
--- NOTE | 2017-08-15 07:49 | Surgery Progress Note ---
Surgery Progress Note Date of Service Aug 15, 2017. Subjective + feeling well abdominal pain completely resolved at this point. no n/v. Objective Vital Signs: Date Time Temp Pulse Resp B/P (MAP) Pulse Ox O2 Delivery O2 Flow Rate FiO2 08/15/17 07:14 37.0 66 16 135/87 (103) 96 Room Air 08/15/17 04:00 Room Air 08/15/17 00:00 Room Air 08/14/17 23:21 36.9 79 20 151/85 (107) 92 Room Air 08/14/17 16:00 Room Air 08/14/17 15:00 36.9 63 20 166/92 (116) 95 08/14/17 08:00 Room Air General Appearance: no apparent distress Head: normocephalic, atraumatic Respiratory/Chest: no respiratory distress, no accessory muscle use Abdomen: non tender, non distended, soft Extremities: non-tender, no pedal edema Laboratory Results: Results Past 24 Hours Test 08/15/17 05:31 Range/Units White Blood Count 6.83 4.8-10.8 K/uL Red Blood Count 4.67 4.7-6.1 M/uL Hemoglobin 13.8 14.0-18.0 g/dL Hematocrit 41.1 42-52 % Mean Corpuscular Volume 88.0 80-100 fL Mean Corpuscular Hemoglobin 29.6 25-34 pg Mean Corpuscular Hemoglobin Concent 33.6 32-36 g/dl Platelet Count 211 130-400 K/uL Mean Platelet Volume 9.1 7.4-10.4 fL Neutrophils (%) (Auto) 65.4 % Lymphocytes (%) (Auto) 20.6 % Monocytes (%) (Auto) 10.7 % Eosinophils (%) (Auto) 3.1 % Basophils (%) (Auto) 0.1 % Neutrophils # (Auto) 4.46 1.4-6.5 K/uL Lymphocytes # (Auto) 1.41 1.2-3.4 K/uL Monocytes # (Auto) 0.73 0.11-0.59 K/uL Eosinophils # (Auto) 0.21 0-0.5 K/uL Basophils # (Auto) 0.01 0-0.2 K/uL RDW Standard Deviation 40.2 36.4-46.3 fL RDW Coefficient of Variation 12.6 11.5-14.5 % Immature Granulocyte % (Auto) 0.1 % Immature Granulocyte # (Auto) 0.01 0.00-0.02 K/uL Sodium Level 143 136-145 mmol/L Potassium Level 4.0 3.5-5.1 mmol/L Chloride Level 110 98-107 mmol/L Carbon Dioxide Level 26 21-32 mmol/L Anion Gap 7.0 3-11 mmol/L Blood Urea Nitrogen 8 7-18 mg/dl Creatinine 0.72 0.60-1.40 mg/dl Est Creatinine Clear Calc Drug Dose 167.7 ml/min Estimated GFR () 122.6 Estimated GFR (Non- 105.8 BUN/Creatinine Ratio 11.7 10-20 Random Glucose 94 70-99 mg/dl Calcium Level 8.1 8.5-10.1 mg/dl Magnesium Level 1.9 1.8-2.4 mg/dl Assessment & Plan no surgical issue at this point awaiting vascular consult will sign off /call if needed.
[2017-08-15] MEDS: MULTIVITAMIN TAB PO SCH (08:49)
[2017-08-15] MEDS: CIPROFLOXACIN / D5W 400 MG in PREMIXED IN D5W 200 ML IV SCH (08:49)
[2017-08-15] MEDS: ENOXAPARIN 40 MG/0.4 ML SYR SQ SCH (08:49)
--- NOTE | 2017-08-15 09:46 | Surgery Consultation ---
Consultation Date of Service Aug 15, 2017. 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 Pt does have hx of abd hernia repair 5 yrs prior. Pt states he had sudden onset of sweating, nausea, and low abd pain, as well as diarrhea, so came to [facility] for eval. States all pain/diarrhea/nausea is resolved. Denies ABDALLA , fever, chest pain, SOB, vomiting, rest pain, claudication, other complaints. Vitals Vital Signs Past 12 Hours Date Time Temp Pulse Resp B/P (MAP) Pulse Ox O2 Delivery O2 Flow Rate FiO2 08/15/17 07:14 37.0 66 16 135/87 (103) 96 Room Air 08/15/17 04:00 Room Air 08/15/17 00:00 Room Air 08/14/17 23:21 36.9 79 20 151/85 (107) 92 Room Air Allergies Coded Allergies: Penicillins (Verified Allergy, Unknown, swelling tongue, 08/13/17) Home Medications Scheduled Fish Oil ([place]-3), 2 CAP PO DAILY Multivitamin (Multivitamin), 1 TAB PO DAILY Problem List Medical Problems: (1) No Known Active Medical Problems Surgical / Medical History Hx Cardiac Surgery: No Hx Abdominal Surgery: No Hx Cancer Surgery: No Hx Thoracic Surgery: No Hx Orthopedic: Yes (shoulder & wrist surgery) Hx Urinary Tract Surgery: No HX Other Surgery: No Family History + HTN Social History Smoking Status: Never Smoker Hx Tobacco Use In Past Year?: No Hx Alcohol Use - Type & Amnt: No Hx Substance Use -Type & Amnt: No Review of Systems Constitutional: No chills, No fever, No malaise Skin: No change in color Eyes: No visual changes ENMT: No sore throat Respiratory: No cough, No JAY, No short of breath Cardiovascular: No chest pain, No palpitations, No syncope, No edema, No intermittent claudication Gastrointestinal: + abdominal pain (resolved), + diarrhea (resolved) Musculoskeletal: No back pain Neurologic: No dizziness, No headache, No numbness, No tingling Physical Exam Constitutional: General Apperance: well-nourished, well-developed, overweight Level of Distress: NAD Ambulation: ambulating normally Psychiatric: Mental Status: active & alert, normal mood, normal affect Orientation: oriented except where noted, to time, to place, to person Memory: recent memory normal, remote memory normal Head: normocephalic, atraumatic Eyes: EOM: EOMI ENMT: normal ENT inspection, hearing grossly normal Neck: supple, trachea midline Lungs: Respiratory effort: no dyspnea Auscultation: no wheezing, no rales/crackles, no rhonchi Cardiovascular: Apical Impulse: not displaced Heart Auscultation: RRR, no rubs, no gallops Peripheral Pulses: Pulses: full and equal, in all extremities except if noted Bruits: none appreciated Carotid Pulse: normal on the left, normal on the right Brachial Pulses: normal on the left, normal on the right Radial Pulse: normal on the left, normal on the right Femoral Pulse: normal on the left, normal on the right Posterior Tibialis Pulse: decreased on the left, decreased on the right Dorsalis Pedis Pulse: decreased on the left, decreased on the right Abdomen: Bowel Sounds: normal Inspection & Palpation: soft, non-distended, no tenderness, guarding & rebound Musculoskeletal: normal strength (5/5 throughout), normal tone Extremities: Upper Right: no cyanosis, no edema, no varicosities Upper Left: no cyanosis, no edema, no varicosities Lower Right: no cyanosis, no edema, no varicosities Lower Left: no cyanosis, no edema, no varicosities Neurologic: Cranial Nerves: grossly intact Sensation: grossly intact Assessment and Plan ASSESSMENT and PLAN: pelvic varix abd pain, epiploic appendagitis Pt sx resolved presently. No intervention recommended regarding pelvic varix. Imaging demonstrates 4cm mass, possibly pelvic varix. Recommend pt be reevaluated with CT scan in 4 wks. Pt aware and will discuss with his PCP. Please call if needed.
--- NOTE | 2017-08-15 11:28 | Progress Note ---
Internal Med Progress Note Date of Service: Aug 15, 2017. Provider Documentation: SUBJECTIVE: Seen and examined at bedside. Doing well today Abdominal pain/Diarrhea/Nausea resolved Denies CP/SOB No other complaints OBJECTIVE: Vital Signs-as noted below Physical Exam: Vitals signs as noted above General Appearance:Obese, no apparent distress Head: normocephalic, Atraumatic Eyes: normal inspection, EOMI, PERRL Neck: supple, Trachea midline Respiratory/Chest: Normal breath sounds, CTA Cardiovascular: S1, S2, No murmur Abdomen/GI:Soft, non tender, Bowel sounds present Extremities/Musculoskelatal:normal inspection, no edema Neurologic/Psych:AAOX3, grossly no focal neurological deficits Skin: normal color, warm Lab data as noted below. 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 H/O Umbilical hernia repair R/O Clostridium difficile Continue IV Abx>>> Switch to PO to complete 7 day course DC IV fluids Appreciate Surgery and Vascular surgery Input Plan to get repeat CT ABD in 4 weeks Asymptomatic pyuria: Likely contaminated specimen urine culture: contaminated Hypertension: Likely situational Monitor Hyperglycemia: No known DM A1C:5.3 Obesity: BMI:40.7 DVT Px: Lovenox SQ Code Status: Full code Disposition: Plan to discharge home today Follow up with your Primary care physician in 1 week as advised Complete the antibiotic course as prescribed Seek immediate medical attention if your symptoms reoccur or worsen Get CT abdomen in 4 weeks and follow up with your doctor as advised Vital Signs: Date Time Temp Pulse Resp B/P (MAP) Pulse Ox O2 Delivery O2 Flow Rate FiO2 08/15/17 08:00 Room Air 08/15/17 07:14 37.0 66 16 135/87 (103) 96 Room Air 08/15/17 04:00 Room Air 08/15/17 00:00 Room Air 08/14/17 23:21 36.9 79 20 151/85 (107) 92 Room Air 08/14/17 16:00 Room Air 08/14/17 15:00 36.9 63 20 166/92 (116) 95 Lab Results: Results Past 24 Hours Test 08/15/17 05:31 Range/Units White Blood Count 6.83 4.8-10.8 K/uL Red Blood Count 4.67 4.7-6.1 M/uL Hemoglobin 13.8 14.0-18.0 g/dL Hematocrit 41.1 42-52 % Mean Corpuscular Volume 88.0 80-100 fL Mean Corpuscular Hemoglobin 29.6 25-34 pg Mean Corpuscular Hemoglobin Concent 33.6 32-36 g/dl Platelet Count 211 130-400 K/uL Mean Platelet Volume 9.1 7.4-10.4 fL Neutrophils (%) (Auto) 65.4 % Lymphocytes (%) (Auto) 20.6 % Monocytes (%) (Auto) 10.7 % Eosinophils (%) (Auto) 3.1 % Basophils (%) (Auto) 0.1 % Neutrophils # (Auto) 4.46 1.4-6.5 K/uL Lymphocytes # (Auto) 1.41 1.2-3.4 K/uL Monocytes # (Auto) 0.73 0.11-0.59 K/uL Eosinophils # (Auto) 0.21 0-0.5 K/uL Basophils # (Auto) 0.01 0-0.2 K/uL RDW Standard Deviation 40.2 36.4-46.3 fL RDW Coefficient of Variation 12.6 11.5-14.5 % Immature Granulocyte % (Auto) 0.1 % Immature Granulocyte # (Auto) 0.01 0.00-0.02 K/uL Sodium Level 143 136-145 mmol/L Potassium Level 4.0 3.5-5.1 mmol/L Chloride Level 110 98-107 mmol/L Carbon Dioxide Level 26 21-32 mmol/L Anion Gap 7.0 3-11 mmol/L Blood Urea Nitrogen 8 7-18 mg/dl Creatinine 0.72 0.60-1.40 mg/dl Est Creatinine Clear Calc Drug Dose 167.7 ml/min Estimated GFR () 122.6 Estimated GFR (Non- 105.8 BUN/Creatinine Ratio 11.7 10-20 Random Glucose 94 70-99 mg/dl Calcium Level 8.1 8.5-10.1 mg/dl Magnesium Level 1.9 1.8-2.4 mg/dl
[2017-08-15] MEDS ORDERED: MTR500 PO (11:30)
[2017-08-15] MEDS ORDERED: CPR500 PO (11:30)
--- NOTE | 2017-08-15 11:32 | Discharge Summary ---
Discharge Summary Date of Service Aug 15, 2017. Discharge Summary Admission Date: Aug 14, 2017 at 01:38 Discharge Date: Aug 15, 2017 Discharge Disposition: Home Principal Diagnosis: Acute epiploic appendagitis; Left internal iliac vein Varix Procedures: CXR: No acute cardiopulmonary process. CT ABD: 1. Tubular structure with minimal peripheral calcification involving the left lower pelvis measuring up to 4.7 cm is contiguous with the left internal iliac vein suggesting a varix. Mild peripheral inflammatory stranding is also noted which is suspicious for possible thrombosis. 2. Ovoid centrally fatty attenuating structure abutting the sigmoid colon, 2.2 cm suggests epiploic appendagitis, acute to subacute. 3. Colonic diverticulosis without diverticulitis. 4. Mild cholelithiasis without CT evidence of acute cholecystitis. Consultations: General Surgery, Vascular surgery Pending Studies/Follow-Up: Follow up with your Primary care physician in 1 week as advised Complete the antibiotic course as prescribed Seek immediate medical attention if your symptoms reoccur or worsen Get CT abdomen in 4 weeks and follow up with your doctor as advised Medication Reconciliation New Medications: Ciprofloxacin (Ciprofloxacin HCl) 500 Mg Tab 500 MG PO BID for 6 Days, #12 TAB Metronidazole (Metronidazole) 500 Mg Tab 500 MG PO TID for 6 Days, #18 TAB Continued Medications: Fish Oil ([place]-3) 1 Ea Cap 2 CAP PO DAILY, CAP Multivitamin (Multivitamin) Tab 1 TAB PO DAILY, TAB Admission Information HPI (per Admitting provider): CHIEF COMPLAINT: Abdominal pain. HISTORY OF PRESENT ILLNESS: History obtained from patient and ER physician. Medical history is significant for bowel obstruction. Patient in town for work today. This morning the patient had hypogastric pain, achy, crampy, going to his upper belly, loose bowel movements, minimal nausea, no vomiting, possible sick contacts, no recent antibiotics. Stools kind of dark. Patient denies dysuria. As per the patient abdominal pain somewhat similar to his bowel obstruction, pain in the past. Patient felt lightheaded, was not comfortable driving back home to [facility]. Intractable pain in the Emergency Room. Patient given ceftriaxone in the ER for possible UTI. Physical Exam (per Admitting): PHYSICAL EXAMINATION: VITAL SIGNS: Blood pressure was noted to be 182/95, later 167/104, pulse rate 90 RR 18 T 37 O2 sats 96 on room air. GENERAL: Noted to be obese, slightly uncomfortable, anxious, no respiratory distress. SKIN: Normal color, dry. HEENT: [place] palpebral conjunctivae, dry mucosa. NECK: Short neck midline trachea. No tenderness. CHEST: Clear to auscultation. No anterior chest wall tenderness. CV: Regular rate and rhythm. Palpable LE pulses. ABDOMEN: Some distention, midline abdominal tenderness. RECTAL: intact sphincter, brown stool, heme negative. EXTREMITIES: Minimal LE edema, no tenderness. Wrist splint on the right. NEUROLOGIC: No gross focality. Hospital Course Abdominal pain: Likely secondary to Acute epiploic appendagitis Left internal iliac vein Varix and possible thrombosis H/O Umbilical hernia repair R/O Clostridium difficile Continue IV Abx>>> Switch to PO to complete 7 day course DC IV fluids Appreciate Surgery and Vascular surgery Input Plan to get repeat CT ABD in 4 weeks Asymptomatic pyuria: Likely contaminated specimen urine culture: contaminated Hypertension: Likely situational Monitor Hyperglycemia: No known DM A1C:5.3 Obesity: BMI:40.7 DVT Px: Lovenox SQ Code Status: Full code Disposition: Plan to discharge home today Follow up with your Primary care physician in 1 week as advised Complete the antibiotic course as prescribed Seek immediate medical attention if your symptoms reoccur or worsen Get CT abdomen in 4 weeks and follow up with your doctor as advised Total time spent on discharge = This includes examination of the patient, discharge planning, medication reconciliation, and communication with other providers. Discharge Instructions Discharge Instructions Date of Service Aug 15, 2017. Admission Reason for Admission: Intractable Lower Abdominal Pain Discharge Discharge Diagnosis / Problem: Acute epiploic appendagitis Discharge Goals Goal(s): Decrease discomfort, Improve function Activity Recommendations Activity Limitations: resume your previous activity Exercise/Sports Limitations: as tolerated . Instructions / Follow-Up Instructions / Follow-Up Follow up with your Primary care physician in 1 week as advised Complete the antibiotic course as prescribed Seek immediate medical attention if your symptoms reoccur or worsen Get CT abdomen in 4 weeks and follow up with your doctor as advised Current Hospital Diet Patient's current hospital diet: AHA Diet (Heart Healthy) Discharge Diet Recommended Diet: AHA Diet (Heart Healthy) Pending Studies Studies pending at discharge: no Laboratory Results Hemoglobin A1c Test 08/13/17 23:10 Range/Units Estimated Average Glucose 105 mg/dl Hemoglobin A1c 5.3 4.5-5.6 % Medical Emergencies . Who to Call and When: Medical Emergencies: If at any time you feel your situation is an emergency, please call 911 immediately. . Non-Emergent Contact Non-Emergency issues call your: Primary Care Provider Call Non-Emergent contact if: you have a fever, your pain is not controlled, your pain is worsening, your pain is unusual for you, your pain is concerning you, you have any medication questions Seek immediate medical attention if your symptoms reoccur or worsen . . "Provider Documentation" section prepared by Jv Spencer. . VTE Core Measure Inpt VTE Proph given/why not?: Enoxaparin (Lovenox)SQ
[2017-08-15 11:52] VITALS: BP 135/87; PULSE 66; TEMP 37; O2SAT 96
[2017-08-15] MEDS ORDERED: METRONIDAZOLE 500 MG TAB PO SCH (14:00)
[2017-08-15] MEDS ORDERED: CIPROFLOXACIN 500 MG TAB PO SCH (21:00)
== END 2017-08-15 12:32 | disposition home or self-care (01) ==
LOC: C.EDB 22:54 → C.MED 08-14 01:38 → ENRESERV 08-14 02:09
PROVIDERS: ADMIT Internal Medicine; ATTEND Internal Medicine
DX: K63.89 Other specified diseases of intestine (principal); I86.8 Varicose veins of other specified sites; K57.90 Diverticulosis of intestine, part unspecified, without perforation or abscess without bleeding; Z88.0 Allergy status to penicillin; Z83.3 Family history of diabetes mellitus; Z82.49 Family history of ischemic heart disease and other diseases of the circulatory system